=== PATIENT | female | born 1995 | race Caucasian/White ===

== ENCOUNTER 2017-03-02 07:52 | Inpatient (IN) | payer OTHER ==
[2017-03-02] MEDS ORDERED: ePHEDrine SULFATE IV PRN (08:50)
[2017-03-02] MEDS ORDERED: MINERAL OIL PO PRN (08:50)
[2017-03-02] MEDS ORDERED: SUBLIMAZE IV PRN (08:50)
[2017-03-02] MEDS ORDERED: BRETHINE IVP PRN (08:50)
[2017-03-02] MEDS ORDERED: STADOL IV PRN (08:50)
[2017-03-02] MEDS ORDERED: BRETHINE SUB-Q PRN (08:50)
[2017-03-02] MEDS ORDERED: XYLOCAINE 2% INFILTRATI ONE (08:50)
[2017-03-02] MEDS ORDERED: PITOCin/NS 20 UNIT/1000ML DRIP 20 UNITS/1,000 ML BAG IV SCH (09:00)
[2017-03-02] MEDS ORDERED: LACTATED RINGERS 1,000 ML IV SCH (09:00)
[2017-03-02 09:08] LABS: Hematocrit 41.5 % (30.3-42.9); Hemoglobin 13.8 gm/dl (10.1-14.3); Mean Corpuscular HGB Conc 33 % (30-34); Mean Corpuscular Hemoglobin 30 pg (28-32); Mean Corpuscular Volume 91 fl (79-97); Platelet Count 162 K/mm3 (140-440); Red Blood Count 4.56 M/mm3 (3.65-5.03); Red Cell Distribution Width 13.9 % (13.2-15.2); White Blood Count 13.9 K/mm3 (4.5-11.0)
--- NOTE | 2017-03-02 09:44 | History and Physical Report ---
History of Present Illness Date of examination: 03/02/17 Date of admission: 03/02/17 08:26 Chief complaint: Intense Labor Pains History of present illness: Late entry to care at [facility] at 18 6/7 Weeks, course uncomplicated. Past History Past Medical History: no pertinent history Past Surgical History: no surgical history [employer] History: abnormal PAP smear Family/Genetic History: none Social history: no significant social history - Obstetrical History Expected Date of Delivery: 03/13/17 Actual Gestation: 38 Week(s) 3 Day(s) : 2 Para: 1 Number of Living Children: 1 #1 Infant Gender: Male year: 2,014 Birthweight: 2.722 kg Method of Delivery: Vaginal Gestational age at delivery: 40 Medications and Allergies Allergies Allergy/AdvReac Type Severity Reaction Status Date / Time No Known Allergies Allergy Verified 03/02/17 08:53 Home Medications Medication Instructions Recorded Confirmed Last Taken Type No Known Home Medications [No 03/02/17 03/02/17 Unknown History Reported Home Medications] Active Meds: Active Medications Butorphanol Tartrate (Stadol) 2 mg IV Q2H PRN PRN Reason: Pain , Severe (7-10) Fentanyl (Sublimaze) 100 mcg IV Q2H PRN PRN Reason: Labor Pain Lactated Ringer's (Lactated Ringers) 1,000 mls @ 125 mls/hr IV DIRECT CRYSTAL Oxytocin/Sodium Chloride (Pitocin/Ns 20 Unit/1000ml Drip) 20 units in 1,000 mls @ 125 mls/hr IV DIRECT CRYSTAL Mineral Oil (Mineral Oil) 30 ml PO QHS PRN PRN Reason: Constipation - Vital Signs Vital signs: Vital Signs Pulse Pulse Ox 73 97 03/02/17 08:12 03/02/17 08:12 Temp Pulse Resp BP Pulse Ox 72 112/66 97 03/02/17 09:37 03/02/17 09:33 03/02/17 09:37 - Physical Exam Breasts: Positive: normal Cardiovascular: Regular rate Lungs: Positive: Clear to auscultation, Normal air movement Abdomen: Positive: normal appearance, normal bowel sounds Genitourinary (Female): Positive: normal external genitalia, normal perenium Uterus: Positive: enlarged Anus/Rectum: Positive: normal perianal skin Extremities: Positive: normal - Obstetrical FHR: category 1 Uterine Contraction Monitor Mode: External Cervical Dilatation: 9 (AROM of a moderate amount of clear fluid at 0928) Cervical Effacement Percentage: 100 station: 0 Uterine Contraction Pattern: Regular Uterine Tone Measurement Phase: Contraction Uterine Contraction Intensity: Strong/Firm Results Result Diagrams: 03/02/17 08:20 Abnormal lab results 03/02/17 Range/Units 08:20 WBC 13.9 H (4.5-11.0) K/mm3 All other labs normal. Assessment and Plan A: IUP at 38 3/7 weeks Category I Tracing Active Labor GBS Negative P: Admit to L&D per routine orders AROM
[2017-03-02] MEDS ORDERED: TUCKS PAD TP PRN (10:08)
[2017-03-02] MEDS ORDERED: TYLENOL PO PRN (10:08)
[2017-03-02] MEDS ORDERED: DULCOLAX PR PRN (10:08)
[2017-03-02] MEDS ORDERED: MILK OF MAGNESIA PO PRN (10:08)
[2017-03-02] MEDS ORDERED: ZOFRAN IV PRN (10:08)
[2017-03-02] MEDS ORDERED: PHENERGAN PR PRN (10:08)
[2017-03-02] MEDS ORDERED: BENADRYL PO PRN (10:08)
[2017-03-02] MEDS ORDERED: PHENERGAN PO PRN (10:08)
[2017-03-02] MEDS ORDERED: LANSINOH TP PRN (10:08)
[2017-03-02] MEDS ORDERED: NORCO 7.5/325 PO PRN (10:12)
--- NOTE | 2017-03-02 10:18 | Procedure Note ---
OB Delivery Note - Delivery Date of Delivery: 03/02/17 (0950) Surgeon: ARASH VELARDE Estimated blood loss: 200cc - Vaginal Delivery presentation: compound Delivery position: OA Intrapartum events: none Delivery induction: none Delivery augmentation: rupture of membranes Delivery monitor: external FHT, external uterine Route of delivery: Delivery placenta: spontaneous Delivery cord: 3 umbilical vessels Episiotomy: none Delivery laceration: none Anesthesia: none Delivery comments: of a live 7'3" male infant over a intact perineum with a right hand compound presentation without pain control with Apgars of 8 and 9 at 0950 on 10/2016. Infant directly to maternal abd/chest, skin to skin contact. Spontaneous delivery of placenta complete and intact with Javed side presenting at 0955. Fundus is firm and midline located 4 below the U. Lochia is scant. Delayed cord clamping and cutting; cord cut by the father of the baby. - Infant A at 1 minute: 8 at 5 minutes: 9 Infant Gender: Male (7'3)
[2017-03-02] MEDS ORDERED: SODIUM CHLORIDE FLUSH SYRINGE 10 ML IV NR (11:00)
[2017-03-02] MEDS: MOTRIN PO SCH ×3 (11:54→23:00)
[2017-03-03 00:37] LABS: Hematocrit 38.2 % (30.3-42.9); Hemoglobin 12.6 gm/dl (10.1-14.3)
[2017-03-03] MEDS: MOTRIN PO SCH (05:41)
[2017-03-03 09:24] VITALS: BP 94/57
--- NOTE | 2017-03-03 10:25 | Progress Note ---
Assessment and Plan A:PPD #1 - stable P: Discharge home today Subjective - Subjective Date of service: 03/03/17 Principal diagnosis: Patient reports: appetite normal : doing well Objective - Vital Signs Latest vital signs: Vital Signs Temp Pulse Pulse Resp BP BP 03/03/17 09:22 97.8 F 76 18 94/57 03/03/17 00:00 98.0 F 71 20 90/51 03/02/17 16:30 98.8 F 84 22 100/74 03/02/17 11:15 98.5 F 66 18 108/67 03/02/17 10:42 76 107/66 03/02/17 10:27 88 114/62 Intake and Output 03/02/17 03/03/17 03/03/17 22:59 06:59 14:59 Intake Total 240 240 120 Output Total 1150 Balance -910 240 120 Intake: Oral 240 240 120 Output: Urine 1150 Void 1150 Other: Total, Intake Amount 240 240 120 Total, Output Amount 600 Voiding Method Toilet # Voids Void 1 1 1 - Exam Breasts: Present: deferred Cardiovascular: Present: Regular rate Lungs: Present: Clear to auscultation Abdomen: Present: soft Vulva: both: normal Uterus: Present: fundal height below umbilicus Extremities: Present: normal Deep Tendon Reflex Grade: Normal +2
--- NOTE | 2017-03-03 10:26 | Discharge Summary ---
Providers - Providers Date of Admission: 03/02/17 08:26 Date of discharge: 03/03/17 Attending physician: ALLI TORRES MD Primary care physician: OFFAL ROLLER Hospitalization Reason for admission: active labor Delivery: Episiotomy: none Laceration: none Other procedures: none complications: none Discharge diagnosis: IUP at term delivered baby: male Condition at discharge: Good Disposition: DC-01 TO HOME OR SELFCARE Plan - Provider Discharge Summary Activity: routine, no sex for 6 weeks, no strenuous exercise Diet: routine Instructions: routine Additional instructions: [] Smoking cessation referral if applicable(refer to patient education folder for contact #) [] Refer to [facility] Booklet Call your doctor immediately for: * Fever > 100.5 * Heavy vaginal bleeding ( >1 pad per hour) * Severe persistent headache * Shortness of breath * Reddened, hot, painful area to leg or breast * Drainage or odor from incision. * Keep incision clean and dry at all times and follow doctor's instructions regarding bathing/showering - Follow up plan Follow up: [facility] [Provider Group] - 6 Weeks
== END 2017-03-03 14:30 | disposition home or self-care (01) | DRG 775 ==
LOC: TRG 07:52 → LD 08:26 → OB 11:12
PROVIDERS: ADMIT Obstetrics & Gynecology; ATTEND Obstetrics & Gynecology
PROC: 10E0XZZ Delivery of Products of Conception, External Approach (ICD-10-PCS; principal; 2017-03-02)
DX: O32.6XX0 Maternal care for compound presentation, not applicable or unspecified (principal); O09.33 Supervision of pregnancy with insufficient antenatal care, third trimester; Z3A.38 38 weeks gestation of pregnancy; Z37.0 Single live birth
CPT/HCPCS: 36415; 85014; 85018; 85027; 86850; 86900; 86901; 99211; A6250; G0463; J2590; J3010; J7120